=== PATIENT | female | born 1960 | race Caucasian/White ===

== ENCOUNTER → 2019-08-17 | Outpatient (CLI) | payer OTHER ==
[2015-08-26 20:30] VITALS: BP 123/71
[~2019-08-17] MED LIST: ASPI-482 PO; ASPI81TA50 PO; CETI10TA16 PO; DICY10CA3 PO; ESTR0.5T PO; MELO15TA23 PO; MONT10TA80 PO; RABE20TA18 PO
--- NOTE | 2019-08-17 11:08 | RAD ---
Examination: CT sinuses without contrast HISTORY: History of patient headache, dizziness, nausea COMPARISON: None available TECHNIQUE: Axial CT images of the sinuses are performed without contrast. Coronal and sagittal reformats are performed. Exposure: One or more of the following individualized dose reduction techniques were utilized for this examination: 1. Automated exposure control 2. Adjustment of the mA and/or kV according to patient size 3. Use of iterative reconstruction technique FINDINGS: The visualized intracranial portion grossly appears unremarkable. The bilateral orbital globes appear intact. Retro-orbital fat is maintained.The bilateral frontal sinuses, bilateral maxillary sinuses, mastoid aircells are clear. IMPRESSION: The paranasal sinuses, mastoid air cells are clear. Electronically signed by: Darien Raphael MD (08/17/2019 11:05 AM) [id number]
== END | disposition home or self-care (01) ==
LOC: CT 08:41
PROVIDERS: ATTEND Family Medicine
DX: R51 Headache (principal); R42 Dizziness and giddiness; R11.0 Nausea; J45.909 Unspecified asthma, uncomplicated; E11.9 Type 2 diabetes mellitus without complications
CPT/HCPCS: 70486

== ENCOUNTER 2020-08-25 13:17 | Emergency (ER) | payer OTHER ==
[~2020-08-25] VITALS: Ht 170.2 cm; Wt 90.1 kg
[2020-08-25] MEDS ORDERED: diphenhydrAMINE HCL 25 MG CAPSULE PO ONE (13:30)
[2020-08-25] MEDS ORDERED: KETOROLAC 60 MG/2 ML VIAL. IM ONE (13:30)
[2020-08-25] MEDS ORDERED: DEXAMETHASONE SOD PHOS 10 MG/ML VIAL. IM ONE (13:30)
[2020-08-25] MEDS ORDERED: METOCLOPRAMIDE HCL 10 MG/2 ML VIAL. IM ONE (13:30)
--- NOTE | 2020-08-25 13:36 | PHYS DOC ---
Past History Past Medical History: Asthma, Cancer, IBS, Migraines Past Surgical History: , Hysterectomy, Other Smoking: Non-smoker Alcohol Use: None Drug Use: None General Adult EDM: Chief Complaint: HEADACHE HPI: HPI: Patient is a 60-year-old female coming in for migraine headache for almost a week. Patient states she is a history of migraines and usually takes Zomig but does not really get relief for this headache. Patient states the pain is mostly occipital and throbbing. Some photophobia. Denies any vision changes, sudden onset headache, tinnitus, loss of hearing. No weakness or paresthesias. Patient denies any recent trauma or falls. Denies any neck stiffness or fevers. States she has otherwise been well. Review of Systems: Review of Systems: All other systems within normal limits except for as noted in the HPI Allergies: Allergies: Allergies Coded Allergies Type Severity Reaction Last Updated Verified No Known Drug Allergies 08/25/20 No Physical Exam: PE: Constitutional: Well developed, well nourished, no acute distress, non-toxic a ppearance. [] HENT: Normocephalic, atraumatic, bilateral external ears normal, nose normal. [] Eyes: PERRLA, conjunctiva normal, no discharge. [] Neck: No rigidity, supple, no stridor. [] Cardiovascular: Regular rate and rhythm, brisk cap refill [] Lungs & Thorax: Non labored symmetric respirations, no tachypnea or respiratory distress [] Abdomen: Soft, nondistended. Skin: Warm, dry, no erythema, no rash. [] Back: Unremarkable Extremities: No deformities, range of motion grossly intact, no lower extremity edema [] Neurologic: Alert and oriented X 3, no focal deficits noted. Ambulates with steady gait. [] Psychologic: Affect normal, judgement normal, mood normal. [] EKG: EKG: [] Radiology/Procedures: Radiology/Procedures: [] Heart Score: Risk Factors: Risk Factors: DM, Current or recent (<one month) smoker, HTN, HLP, family history of CAD, obesity. Risk Scores: Score 0 - 3: 2.5% MACE over next 6 weeks - Discharge Home Score 4 - 6: 20.3% MACE over next 6 weeks - Admit for Clinical Observation Score 7 - 10: 72.7% MACE over next 6 weeks - Early Invasive Strategies Course & Med Decision Making: Course & Med Decision Making Patient with history of migraines and is in her previous migraines. Discussed the options of work-up and IV medications or IM medications and discharge home with to sleep at home to try to break headache. Discussed risks and benefits of each. Patient opted for IM medications and discharge with instructions to return to emergency department headache does not break at home. Dragon Disclaimer: Dragon Disclaimer: This electronic medical record was generated, in whole or in part, using a voice recognition dictation system. Departure Departure: Impression: Primary Impression: Migraine Disposition: 01 DC HOME SELF CARE/HOMELESS Condition: STABLE Referrals: SYLVIA SANDERS (PCP) Patient Instructions: Miglustat capsules SARAH MCCRAY MD Aug 25, 2020 13:36
[2020-08-25 13:50] VITALS: BP 136/73
== END 2020-08-25 13:53 | disposition home or self-care (01) ==
LOC: ER 13:17
DX: G43.909 Migraine, unspecified, not intractable, without status migrainosus (principal); J45.909 Unspecified asthma, uncomplicated; K58.9 Irritable bowel syndrome, unspecified
CPT/HCPCS: 96372; 99284; J1885; J2765

== ENCOUNTER 2020-09-04 17:23 | Emergency (ER) | payer OTHER ==
[~2020-09-04] VITALS: Ht 170.2 cm; Wt 87.7 kg
--- NOTE | 2020-09-04 17:28 | PHYS DOC ---
Past History Past Medical History: Asthma, Cancer, IBS, Migraines (FADIA HYLTON APRN) Past Surgical History: , Hysterectomy, Other Additional Past Surgical Histo: BLADDER (FADIA HYLTON APRN) Smoking: Non-smoker Alcohol Use: Rarely Drug Use: None (FADIA HYLTON APRN) Adult General HPI HPI Patient is a 60-year-old female presents to the emergency department complaining of sudden onset of epigastric pain just 25 minutes prior to arrival. Patient states she was sitting sorting out old [employer] cards when the pain hit her all of a sudden. Patient states she got up and took both Tums and Gas-X without relief of pain. Patient states that she alerted her to bring her to the emergency department. Patient rated her pain a 10/10 on a 1-10 pain scale, however when the patient arrived to the emergency department she states her pain had dropped down to a 4/10 on a 1-10 pain scale. Patient denies any radiation of this pain. Patient states it hurts worse when she presses on her upper stomach area. Patient denies any diaphoretic episodes. Patient denies any chest palpitations. Patient denies chest pains. Patient denies nausea, vomiti ng, or diarrhea. Patient denies recent fever or chills, denies loss of smell or loss of taste. Patient denies headaches. Denies fatigue, muscle or body aches, patient denies any COVID-19 virus symptoms and does not wish to be checked for the COVID-19 virus today. (FADIA HYLTON APRN) Review of Systems Review of Systems 14 body systems of review of systems have been reviewed. See HPI for pertinent positives and negative responses, otherwise all other systems are negative, nonpertinent or noncontributory. (FADIA HYLTON NATURAL GAS SHOTHOLE DRILLER) Allergies Allergies Allergies Coded Allergies Type Severity Reaction Last Updated Verified No Known Drug Allergies 08/25/20 No (FADIA HYLTON APRN) Physical Exam Physical Exam Constitutional: Well developed, well nourished, no acute distress, non-toxic appearance. HENT: Normocephalic, atraumatic, bilateral external ears normal, oropharynx moist, no oral exudates, nose normal. Eyes: PERRLA, EOMI, conjunctiva normal, no discharge. Neck: Normal range of motion, no tenderness, supple, no stridor. Cardiovascular:Heart rate regular rhythm, no murmur, heart sounds S1-S2 to auscultation. Lungs & Thorax: Bilateral breath sounds clear to auscultation all lung richards. Reproducible pain to epigastric area just inferior to xiphoid process. Abdomen: Bowel sounds normal, soft, no tenderness, no masses, no pulsatile masses. Skin: Warm, dry, no erythema, no rash. Back: No tenderness, no CVA tenderness. Extremities: No tenderness, no cyanosis, no clubbing, ROM intact, no edema. Neurologic: Alert and oriented X 3, normal motor function, normal sensory functi on, no focal deficits noted. Psychologic: Affect normal, judgement normal, mood normal. (FADIA HYLTON APRN) EKG EKG EKG performed at 1735 by house respiratory therapy staff, shows a heart rate of 68 bpm normal sinus rhythm without ectopy, MD interval 0.156, QTc interval 0.406, no acute STEMI, ACS, or acute ischemia appreciated, EKG interpreted by ED attending physician Dr. Gipson. Serial EKG performed at 2053 per house respiratory therapy staff, shows a heart rate of 58 bpm, sinus bradycardia without ectopy, MD interval 0.182, QTc interval 0.396, no acute STEMI, ACS, or acute ischemia appreciated, EKG interpreted by ED attending physician Dr. Gipson. (FADIA HYLTON APRN) Radiology/Procedures Radiology/Procedures [] (FADIA HYLTON APRN) Heart Score HEART Score for Chest Pain: HEART Score for Chest Pain Response (Comments) Value History Slighlty/Non-Suspicious 0 ECG Normal 0 Age >45 - < 65 1 Risk Factors 1 or 2 Risk Factors 1 Troponin < Normal Limit 0 Total 2 Risk Factors: Risk Factors: DM, Current or recent (<one month) smoker, HTN, HLP, family history of CAD, obesity. Risk Scores: Risk Factors: DM, Current or recent (<one month) smoker, HTN, HLP, family history of CAD, obesity. (FADIA HYLTON APRN) Course & Med Decision Making Course & Med Decision Making Pertinent Labs and Imaging studies reviewed. (See chart for details) 60-year-old female, vital signs reviewed, presents emergency department with epigastric pain just inferior to the xiphoid process. Physical examination concerning for possible cardiac versus abdominal versus pulmonary process. ED work-up: EKG, cardiac enzymes, CBC, CMP, lipase, chest x-ray Chest x-ray read normal without acute process per radiology interpretation, EKG unremarkable, initial cardiac enzymes to include troponin I unremarkable. Patient's pain is now a 2/10. Will give IV fentanyl and Toradol for pain. Plan discussed with patient to repeat EKG and cardiac enzymes in 3 hours. Patient amenable to this plan. Serial EKG and cardiac enzymes were negative, patient's lipase was not elevated, patient's chest x-ray was nonconcerning, patient's pulmonary assessment was nonconcerning. Reexamination of the patient found patient's pain a 2/10 on a 1- 10 pain scale when her epigastric area is palpated. Patient states that she feels as if it is in the muscle wall, this is most likely chest wall pain. Discussed findings with patient, patient states that she will follow up with her doctor tomorrow if pain persists, patient gave verbal understanding of discharge home instructions, strict return to ER concerns, follow-up with primary care, patient discharged home without incident. (FADIA HYLTON APRN) Dragon Disclaimer Dragon Disclaimer This electronic medical record was generated, in whole or in part, using a voice recognition dictation system. (FADIA HYLTON APRN) Departure Departure: Impression: Primary Impression: Chest wall pain Disposition: 01 DC HOME SELF CARE/HOMELESS Condition: GOOD Referrals: GERDA GARRISON APRN (PCP) Additional Instructions: Please follow-up with your primary care doctor for ongoing pain, please return immediately to the emergency department for increasing or worsening pain, symptoms, or other concerns. We did an extensive work-up of your heart, lungs, and abdomen, there were no acute or concerning findings, however as this is most likely muscular chest wall pain, it is imperative that you follow-up with your primary care doctor for further assessment if this pain continues. EMERGENCY DEPARTMENT GENERAL DISCHARGE INSTRUCTIONS Thank you for coming to [facility] (ED) today and trusting us with you care. We trust that you had a positivie experience in our Emergency Department. If you wish to speak to the department management, you may call the director at [phone]. YOUR FOLLOW UP INSTRUCTIONS ARE FOLLOWS: 1. Do you have a private Doctor? If you do not have a private doctor, please ask for a resource list of physicians or clinics that may be able to assist you with follow up care. 2. The Emergency Physician has interpreted your x-rays. The X-Ray specialist will also review them. If there is a change in the findings, you will be notified in 48 hours when at all possible. 3. A lab test or culture has been done, your results will be reviewed and you will be notified if you need a change in treatment. ADDITIONAL INSTRUCTIONS AND INFORMATION: 1. Your care today has been supervised by a physician who is specially trained in emergency care. Many problems require more than one evaluation for a complete diagnosis and treatment. We recommend that you schedule your follow up appointment as recommended to ensure complete treatment of you illness or injury. If you are unable to obtain follow up care and continue to have a problem, or if your condition worsens, we recommend that you return to the ED. 2. We are not able to safely determine your condition over the phone nor are we able to give sound medical advice over the phone. For these safety reasons, if you call for medical advice we will ask you to come to the ED for further evaluation. 3. If you have any questions regarding these discharge instructions please call the ED at [phone]. SAFETY INFORMATION: In the interest of safety, wellness, and injury prevention; we encourage you to wear your sealbelt, if you smoke; quite smoking, and we encourage family to use a protective helmet for bicycling and other sporting events that present an increased risk for head injury. IF YOUR SYMPTOMS WORSEN OR NEW SYMPTOMS DEVELOP, OR YOU HAVE CONCERNS ABOUT YOUR CONDITION; OR IF YOUR CONDITION WORSENS WHILE YOU ARE WAITING FOR YOUR FOLLOW UP APPOINTMENT; EITHER CONTACT YOUR PRIMARY CARE DOCTOR, THE PHYSICIAN WHOSE NAME AND NUMBER YOU WERE GIVEN, OR RETURN TO THE ED IMMEDIATELY. Attending Signature Attending Signature I have participated in the care of this patient and I have reviewed and agree with all pertinent clinical information above including history, exam, and recommendations. (JAVI GIPSON MD) FADIA HYLTON APRN Sep 04, 2020 17:28 JAVI GIPSON MD Sep 05, 2020 13:49
[2020-09-04] MEDS ORDERED: LIDO:MAALOX 1:1 20 ML SINGLE DOSE. PO ONE (18:00)
--- NOTE | 2020-09-04 18:06 | RAD ---
INDICATION: Reason: CHEST PAIN / Spl. Instructions: / History: COMPARISON: October 2014 FINDINGS: 2 view of chest obtained. Degenerative changes of the spine. Calcific atherosclerosis. Calcified nodules which could be sequela of old granulomatous disease. No definite focal airspace consolidation. IMPRESSION: * No focal airspace consolidation or edema. Electronically signed by: Ricky Rodgers MD (09/04/2020 6:04 PM) [id number]
[2020-09-04 18:27] LABS: BASO % 0 % (0-3); EOS % 0 % (0-3); HEMATOCRIT 39.3 % (36.0-47.0); HEMOGLOBIN 12.9 g/dL (12.0-15.5); LYMPH # 1.9 x10^3/uL (1.0-4.8); LYMPH % 17 % (24-48); MEAN CORPUSCULAR HEMOGLOBIN 31 pg (25-35); MEAN CORPUSCULAR HGB CONC 33 g/dL (31-37); MEAN CORPUSCULAR VOLUME 94 fL (79-100); MONO # 0.8 x10^3/uL (0.0-1.1); MONO % 7 % (0-9); NEUT # 8.2 x10^3uL (1.8-7.7); NEUT % 75 % (31-73); PLATELET COUNT 229 x10^3/uL (140-400); RED CELL DISTRIBUTION WIDTH 15.7 % (11.5-14.5); WHITE BLOOD COUNT 10.9 x10^3/uL (4.0-11.0)
[2020-09-04 18:34] LABS: CALCIUM 9.2 mg/dL (8.5-10.1); CREATININE 1.1 mg/dL (0.6-1.0); GFR 50.8; POTASSIUM 4.4 mmol/L (3.5-5.1)
[2020-09-04 18:49] LABS: ALBUMIN 3.8 g/dL (3.4-5.0); ALBUMIN/GLOBULIN RATIO 1.2 (1.0-1.7); MAGNESIUM 2.2 mg/dL (1.8-2.4); TOTAL BILIRUBIN 0.1 mg/dL (0.2-1.0)
--- NOTE | 2020-09-04 18:55 | EKG ---
[address] [address] Test Date: 2020-09-04 Test Time: 17:35:48 Pat Name: NAYELI JENNINGS Department: Room: Gender: F Billposter: [place] : 1960 Requested By: FADIA HYLTON Order Number: [id number] Reading MD: Master Rowe Measurements Intervals [place] Rate: 68 P: 40 FL: 156 QRS: 29 QRSD: 72 T: 46 QT: 382 QTc: 406 Interpretive Statements SINUS RHYTHM NORMAL ECG Electronically Signed On 09-09-2020 9:57:14 DRIVER'S LICENSE EXAMINER by Master Rowe
[2020-09-04] MEDS ORDERED: KETOROLAC 15 MG/ML VIAL. IVP ONE (20:15)
--- NOTE | 2020-09-04 21:13 | EKG ---
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
[2020-09-04 21:55] VITALS: BP 152/64
== END 2020-09-04 22:00 | disposition home or self-care (01) ==
LOC: ER 17:23
DX: R07.89 Other chest pain (principal); R10.13 Epigastric pain; J45.909 Unspecified asthma, uncomplicated; K58.9 Irritable bowel syndrome, unspecified; G43.909 Migraine, unspecified, not intractable, without status migrainosus; Z90.710 Acquired absence of both cervix and uterus; Z98.890 Other specified postprocedural states
CPT/HCPCS: 36415; 71046; 80053; 82553; 83690; 83735; 84484; 85025; 85379; 93005; 96374; 96375; 99285; J1885; J3010

== ENCOUNTER → 2021-01-06 | Outpatient (CLI) | payer OTHER ==
--- NOTE | 2021-01-12 12:43 | RAD ---
NM INJECTION History:Reason: epigastric pain / Comparison: None. Technique: 5.5 mCi technetium 99m Choletec was administered intravenously. The patient was scanned f or approximately 5 seconds with the patient became claustrophobic and refused to continue the examina tion. Findings: No images were obtained. Impression: 1. Patient was unable to complete the examination. No images were obtained. Electronically signed by: Shashank To DO (01/12/2021 12:40 PM) [id number]
== END ==
LOC: NM 08:27
PROVIDERS: ATTEND Internal Medicine Gastroenterology
DX: R10.13 Epigastric pain (principal)
CPT/HCPCS: A9537

== ENCOUNTER → 2021-03-03 | Day surgery (SDC) | payer OTHER ==
[~2021-03-03] MED LIST changes: +CETI10TA74 PO; +GLUCOSAMINE; +IPRATRPIUM/ALBUTEROL 0.5/2.5MG 3 ML NEBU. NEB PRN; +IV RINGERS SOLUTION,LACTATED 1,000 ML IV SCH; +LIDOCAINE 2% PF 5 ML VIAL. ONE; +MIDAZOLAM HCL PF 2 MG/2 ML VIAL. IV ONE; +ONDANSETRON PF 4 MG/2 ML VIAL. IV PRN; +OXYB10TA7 PO; +PANT40TA6 PO; +PROPOFOL 10,000 MCG/ML (20ML) VIAL IV ONE; +flovent INH; +probiotic; +vitamin d3
[2021-03-03 08:42] VITALS: BP 134/69
--- NOTE | 2021-03-04 17:23 | PATHOLOGY ---
[facility] Accession Number: [id number] . 01 Material submitted: . PART A: small bowel - SMALL BOWEL R/O CELIAC SPRUE PART B: gastrointestinal site - GASTRIC ANTRUM FOR H. PYLORI . 01 Clinical history: . GERD/PAIN EGD . 02 Diagnosis: A. Small bowel biopsies: - No significant pathologic abnormalities. . B. Gastric biopsy, antrum: - Chronic gastritis, mild. (JPM:sabas; 03/04/2021) S 03/04/2021 1438 Local . 02 Comment: Sections of the small bowel biopsy reveal segments of duodenal and small intestine mucosa. Where best oriented, the mucosal villi show no sprue-like changes or significant inflammatory changes. . Sections of the gastric biopsy reveal gastric antral/body transition mucosa showing congestion and mild chronic inflammation. A properly controlled immunoperoxidase stain for Helicobacter is negative for Helicobacter organisms. (JPM:sabas; 03/04/2021) . Special stain performed: Immunoperoxidase stain for Helicobacter on B1 . . 02 Electronically signed: . Nicolás Moya MD, Pathologist NPI- [id number] . 01 Gross description: . A. The specimen is received in formalin, labeled "Stockwell, Shamika L and small bowel R/O celiac". It consists of multiple miller irregular soft tissue fragments measuring 0.8 x 0.7 x 0.2 cm in aggregate. The specimen is entirely submitted between sponges in A1. . B. The specimen is received in formalin, labeled "Stockwell, Shamika L and gastric BX for H. pylori" and per the requisition "gastric antrum for H. pylori". It consists of a miller irregular soft tissue fragment measuring 0.7 x 0.2 x 0.1 cm. The specimen is entirely submitted between sponges in B1. (MRF; 03/03/2021) MFE/MFE 03/04/2021 1435 Local . 02 Pathologist provided ICD-10: K29.50, K21.9 . 02 CPT . 041892, 869479, [id number] Specimen Comment: A courtesy copy of this report has been sent to [phone] Specimen Comment: 1050, Specimen Comment: Report sent to , DR GARRISON / DR SANDERS Performed at: 01 [facility] [address], [place] [id number] MD Fitz Phelps MD Phone: [phone] Performed at: 02 [facility] [address] [place], [place] [id number] MD Nicolás Moya MD Phone: [phone]
== END ==
LOC: SURG 06:14
PROVIDERS: ATTEND Internal Medicine Gastroenterology
DX: K21.9 Gastro-esophageal reflux disease without esophagitis (principal); K29.50 Unspecified chronic gastritis without bleeding; K44.9 Diaphragmatic hernia without obstruction or gangrene; G43.909 Migraine, unspecified, not intractable, without status migrainosus; G47.33 Obstructive sleep apnea (adult) (pediatric); Z79.899 Other long term (current) drug therapy; Z90.710 Acquired absence of both cervix and uterus; Z98.890 Other specified postprocedural states
CPT/HCPCS: 43239; J2001; J2704; J7120; 88305; 88342

== ENCOUNTER 2021-04-20 15:25 | Emergency (ER) | payer OTHER ==
[~2021-04-20] VITALS: Ht 170.2 cm; Wt 97.6 kg
[~2021-04-20 15:25] MED LIST changes: -IPRATRPIUM/ALBUTEROL 0.5/2.5MG 3 ML NEBU. NEB PRN; -IV RINGERS SOLUTION,LACTATED 1,000 ML IV SCH; -LIDOCAINE 2% PF 5 ML VIAL. ONE; -MIDAZOLAM HCL PF 2 MG/2 ML VIAL. IV ONE; -ONDANSETRON PF 4 MG/2 ML VIAL. IV PRN; -PROPOFOL 10,000 MCG/ML (20ML) VIAL IV ONE
--- NOTE | 2021-04-20 15:43 | PHYS DOC ---
Past History Past Medical History: Asthma, GERD (GENARO OSBORN DO) Past Surgical History: No Surgical History Additional Past Surgical Histo: BLADDER (GENARO OSBORN DO) Smoking: Non-smoker Alcohol Use: Rarely Drug Use: None (GENARO OSBORN DO) Adult General HPI HPI Patient is a 60-year-old female presenting for left neck abnormality. Onset was 30 minutes prior to arrival without any known trauma, ingestion, exposure, inoculation or known mechanism of injury. Nothing known makes better or worse. Patient denies any pain just reports coughing and the left side of her neck feeling tight. States she has been at [facility], woke up and went to primary care physician for evaluation of another nonconcerning complaint and did not even realize any left neck swelling or known abnormalities throughout the day. (GENARO OSBORN DO) Review of Systems Review of Systems Fourteen body systems of review of systems have been reviewed. See HPI for pertinent positives and negative responses, other owusu all other systems are negative, non-pertinent or non-contributory (GENARO OSBORN DO) Allergies Allergies Allergies Coded Allergies Type Severity Reaction Last Updated Verified No Known Drug Allergies 03/03/21 No (GENARO OSBORN DO) Physical Exam Physical Exam Constitutional: Well developed, well nourished, no acute distress, non-toxic appearance. HENT: Normocephalic, atraumatic, bilateral external ears normal, oropharynx moist, no oral exudates, nose normal. Eyes: PERRLA, EOMI, conjunctiva normal, no discharge. Neck: Normal range of motion, no tenderness, supple, no stridor. There is extensive soft tissue swelling and edema present to left neck overlying clavicle without any crepitus or other abnormality Cardiovascular: Heart rate regular, sinus rhythm, no murmurs rubs or gallops Lungs & Thorax: Bilateral breath sounds clear to auscultation Abdomen: Bowel sounds normal, soft, no tenderness, no masses, no pulsatile masses. Nonsurgical abdomen, no peritoneal signs Skin: Warm, dry, no erythema, no rash. Back: No tenderness, no CVA tenderness. Extremities: No tenderness, no cyanosis, no clubbing, ROM intact, no edema. Neurologic: Alert and oriented X 3, grossly normal motor & sensory function, no focal deficits noted. Psychologic: Affect normal, judgement normal, mood normal. (GENARO OSBORN DO) Physical Exam Constitutional: Well developed, well nourished, no acute distress, non-toxic appearance HENT: Normocephalic, atraumatic, tongue normal, handling oral secretions without difficulty Eyes: Conjunctiva normal, no discharge Neck: Decreased range of motion given tenderness with rotation and flexion, left lateral soft tissue swelling at base of neck which is mildly tender to palpation, edema does extend medially to right side, nonpulsatile, no stridor Lungs & Thorax: No respiratory distress, equal chest rise and fall Abdomen: Soft, no tenderness Skin: Warm, dry, mild erythema to anterior neck Extremities: No tenderness, ROM intact, no edema Neurologic: Alert and oriented X 3, no focal deficits noted Psychologic: Affect normal, judgment normal (FADIA JANE DO) Current Patient Data Vital Signs Vital Signs Date Time Temp Pulse Resp B/P (MAP) Pulse Ox O2 Delivery O2 Flow Rate FiO2 04/20/21 15:25 97.8 77 18 134/69 (90) 96 Room Air 04/20/21 21:35 13.0 Vital Signs Date Time Temp Pulse Resp B/P (MAP) Pulse Ox O2 Delivery O2 Flow Rate FiO2 04/21/21 16:47 98.1 87 16 140/71 (94) 95 04/21/21 08:20 94.0 04/21/21 03:20 Room Air Lab Results Laboratory Tests Test 04/20/21 16:05 White Blood Count 8.6 x10^3/uL Red Blood Count 4.26 x10^6/uL Hemoglobin 12.7 g/dL Hematocrit 39.3 % Mean Corpuscular Volume 92 fL Mean Corpuscular Hemoglobin 30 pg Mean Corpuscular Hemoglobin Concent 32 g/dL Red Cell Distribution Width 15.0 % Platelet Count 199 x10^3/uL Neutrophils (%) (Auto) 64 % Lymphocytes (%) (Auto) 22 % Monocytes (%) (Auto) 8 % Eosinophils (%) (Auto) 5 % Basophils (%) (Auto) 1 % Neutrophils # (Auto) 5.5 x10^3uL Lymphocytes # (Auto) 1.9 x10^3/uL Monocytes # (Auto) 0.7 x10^3/uL Eosinophils # (Auto) 0.4 x10^3/uL Basophils # (Auto) 0.1 x10^3/uL Sodium Level 138 mmol/L Potassium Level 4.4 mmol/L Chloride Level 103 mmol/L Carbon Dioxide Level 23 mmol/L Anion Gap 12 Blood Urea Nitrogen 13 mg/dL Creatinine 1.0 mg/dL Estimated GFR (Cockcroft-Gault) 56.7 BUN/Creatinine Ratio 13 Glucose Level 106 mg/dL Calcium Level 9.0 mg/dL Total Bilirubin 0.3 mg/dL Aspartate Amino Transf (AST/SGOT) 22 U/L Alanine Aminotransferase (ALT/SGPT) 33 U/L Alkaline Phosphatase 62 U/L Troponin I Quantitative < 0.017 ng/mL Total Protein 6.1 g/dL Albumin 3.5 g/dL Albumin/Globulin Ratio 1.3 Current Medications Medications (Trade) Dose Ordered Sig/[place] Route PRN Reason Start Time Stop Time Status Last Admin Dose Admin Iohexol (Omnipaque 300 Mg/ml) 75 ml 1X ONCE IV 04/20/21 17:00 04/20/21 17:06 DC Vancomycin HCl 2 gm/Sodium Chloride 500 ml @ 250 mls/hr 1X ONCE IV 04/20/21 17:15 04/20/21 19:14 Piperacillin Sod/ Tazobactam Sod 3.375 gm/Sodium Chloride 50 ml @ 100 mls/hr 1X ONCE IV 04/20/21 17:15 04/20/21 17:44 Methylprednisolone Sodium Succinate (SOLU-Medrol 125MG VIAL) 125 mg 1X ONCE IV 04/20/21 17:30 04/20/21 17:31 DC (GENARO OSBORN DO) EKG EKG EKG ordered and interpreted by myself at 1606 hrs. as sinus rhythm at 77 bpm, unremarkable intervals, no axis deviation, no acute ischemic findings, no STEMI (GENARO OSBORN DO) EKG @1033 NSR at 89bpm, NO ST elevation, QRS 70ms, QT/QTc 350/427ms (FADIA JANE DO) Radiology/Procedures Radiology/Procedures CT NECK CHEST W/CONT 04/20/2021 3:50 PM Indication: Left neck swelling COMPARISON: None available. TECHNIQUE: Multiple axial CT images of the neck and chest were obtained after intravenous demonstration of nonionic contrast. Coronal and sagittal reformats are provided. FINDINGS: Extensive inflammation identified centered within the left supraclavicular space with involvement of the anterior left chest wall superficial to the left pectoralis muscle and left clavicle. Inflammation extends along the anterior margins of the scalene musculature and medially to involve no retropharyngeal space inflammatory changes extending into the mediastinum along the left common carotid artery to involve the AP window as well as along the esophagus with fluid noted along the lateral margins of the esophagus distally. No significant wall thickening involving the aorta, common carotid or internal carotid arteries. The left internal jugular vein is widely patent. Subclavian vein is widely patent. No thrombophlebitis. There is inflammation identified along the left strap muscles. Thyroid gland is normal in appearance with more diminutive caliber of the left thyroid lobe. Numerous nonenlarged bilateral cervical lymph nodes are identified measuring up to 8 mm in the left supraclavicular space. There is no significant joint effusion identified. Sternoclavicular joints are normal in appearance. Cervical and thoracic spine are normal in appearance. No suspicious abnormality identified involving the visualized portions of the brain parenchyma and posterior fossa. The skull base is normal. The visualized paranasal sinuses are well aerated. Orbital contents appear normal. The sella turcica and cavernous sinus regions appear intact. The mastoid air cells are well aerated. The fossa of Rosenmuller is normal. Nasopharynx is normal in appearance. The parotid space contents and conference center manager space contents appear intact. The parapharyngeal spaces are normal. The submandibular contents appear intact. Oral cavity, floor of mouth and sublingual space appear normal.. Oropharynx is normal in appearance. The epiglottis, aryepiglottic folds, and piriform sinuses are normal. The vallecula appears normal. The larynx and trachea are normal. The thyroid gland is normal in appearance. Mild reticular interstitial changes are identified throughout the lungs without focal airspace consolidation. No significant pleural effusions, pulmonary vascular congestion or pneumothorax. There is a 5 mm solid noncalcified pulmonary nodule in the right middle lobe (series 2, image 119). Heart size within normal limits. Thoracic aorta is normal in course and caliber. No pathologically enlarged thoracic lymph nodes. No pericardial effusion. Internal mammary chain is normal. No significant soft tissue mass within the breasts. Upper abdomen is normal in appearance. SVC is patent. No significant osseous abnormality. IMPRESSION: Extensive inflammatory changes are identified at the left neck base centered within the left supraclavicular space with shotty lymphadenopathy. Primary consideration would include lymphadenitis. Inflammatory changes do extend into the mediastinum and early mediastinitis remains a differential consideration. There is ill-definition and inflammatory changes along the middle one third and distal one third of the thoracic esophagus. Correlate with any possible esophageal injury. Correlate with any recent trauma or respiratory infection. Injury to the lymphatic duct is a possibility. No mucosal edema involving the larynx or pharynx. There is no thrombophlebitis or inflammation centered around the arteries. Effusion noted within the retropharyngeal space may be bland, although superimposed infection remains a differential consideration. Correlate with any skin changes may be associated with bug bite, cutaneous inflammation or infection. Myositis is a differential consideration given extensive inflammation along the scalene muscles. No no drainable abscess is identified. Airways patent. (GENARO OSBORN DO) Heart Score C/O Chest Pain: No Risk Factors: Risk Factors: DM, Current or recent (<one month) smoker, HTN, HLP, family history of CAD, obesity. Risk Scores: Risk Factors: DM, Current or recent (<one month) smoker, HTN, HLP, family history of CAD, obesity. (GENARO OSBORN DO) C/O Chest Pain: N/A (SARAH MCCRAY MD) Course & Med Decision Making Course & Med Decision Making Airway patent, breathing unlabored, IV access and vitals obtained HPI, physical exam and comprehensive ER work-up concerning for left-sided neck mass with etiology most likely being lymphadenitis. Question infectious versus malignant causes During decision made to start IV Vanco and Zosyn for antibiotic coverage in addition to giving 125 mg Solu-Medrol. I spoke with hospitalist at [facility] who discussed need for hospital transfer with oncologic services/ability for tissue biopsy and further inpatient work-up which is not available at [facility] As such [facility] was contacted and advised that they would not be accepting any transfers at this time due to being at max capacity I spoke with hospitalist at [facility] who accepted patient in transfer pending bed availability due to ongoing COVID-19 pandemic and capacity issues locally At this time in care, my shift was ending and comprehensive signout given to oncoming physician. Please defer to oncoming physician's documentation regarding future care of patient in ER setting (GENARO OSBORN DO) Course & Med Decision Making Accepted patient care at shift change. Receiving antibiotics and steroids. He is on patient and has large mass in the left side of her neck patient states that she feels pushing on her airway but denies any difficulty swallowing clearing secretions. No difficulty breathing or speaking in full sentences unlabored. 1900 reevaluation of patient states that she feels about the same. Still trying to call multiple hospitals in the area to find a facility with cardiothoracic surgery due to the CT findings of possible early mediastinitis and possible need for mediastinal washout. 2300 patient states she feels like the swelling in her neck is crossing more to the front of her neck but is still able to manage secretions easily and speaking full sentences without difficulty. She will continue to call and not able to find any placement for patient. Have called [facility], [facility], [facility], [facility], [facility], [facility], which to hospital systems [facility] [address] and [facility]. No place has an available bed plus cardiothoracic surgery capabilities. Chloe I have asked that patient be given information about a organization called [employer], they were contacted to assist in finding bed placement. 0400 patient continues to state the swelling has not worsened and she feels little bit better. Still has large noticeable swelling in the supraclavicular space and left neck. [place] controlled gave information about facility and over with CT surgery, [facility] was contacted. They will have their hospitalist call back. 0600 Dr. Roman from [facility] in [facility] declined patient that they do not have enough ICU beds. (SARAH MCCRAY MD) Course & Med Decision Making 0600- Sign out received from Dr. Mccray. Labs and CT imaging reviewed. Patient awaiting acceptance for transfer. Patient seen and evaluated by myself. Patient still complains of some "tightness" but reports lateral soft tissue swelling had improved. Patient receiving scheduled steroids and broad spectrum antibiotics. 1430- Patient with new perioral mild erythema. No tongue or airway involvement. 1455- Called with possible accepting facility at [facility]. Discussed case with Dr. Mauricio Castro (ENT). Dr. Castro reports it appears no surgical management required at this time and patient appears to be improving with medical management. Dr. Castro does not accept of transfer given no surgical intervention required at this time. Advised in agreement medical management has been helping but concern that with symptom change of perioral erythema and lack of MRI or library media specialist at our site, that I feel that patient needs to be admitted at facility with surgical capability. transfer center to [facility] hospitalist regarding possible transfer of patient for continued medical management with ENT consultation. Patient has been tolerated PO in department. 1515- hospitalist concerned that patient would require ICU vs step down unit (PCU) for medical management. No ICU/PCU beds available at at this time. Therefore currently declining transfer for admission. 1625- [facility] called regarding need for transfer. 1635- Discussed case with Dr. Luis Crane (hospitalist) who is in agreement with transfer for further evaluation and treatment with ENT and cardiothoracic consultation. Discussed findings and plan with patient and spouse, who acknowledge understanding and agreement. (FADIA JANE DO) Dragon Disclaimer Dragon Disclaimer This electronic medical record was generated, in whole or in part, using a voice recognition dictation system. (GENARO OSBORN DO) Departure Departure: Impression: Primary Impression: Neck swelling Additional Impressions: Lymphadenitis Mediastinitis Myositis Disposition: 02 [facility] ([facility] Rm 677- Dr. Luis Crane (hospitalist) accepting) Admitting Physician: Other (DR STEEL) (GENARO OSBORN DO) Condition: GUARDED Referrals: LISANDRA MANZANARES DO (PCP) Problem Qualifiers Additional Impressions: Myositis Myositis type: unspecified type Myositis location: other site Qualified Codes: M60.9 - Myositis, unspecified GENARO OSBORN DO Apr 20, 2021 15:43 SARAH MCCRAY MD Apr 21, 2021 05:20 FADIA JANE DO Apr 21, 2021 10:50
--- NOTE | 2021-04-20 16:23 | RAD ---
PQRS Compliance Statement: One or more of the following individualized dose reduction techniques were utilized for this examinat ion: 1. Automated exposure control 2. Adjustment of the mA and/or kV according to patient size 3. Use of iterative reconstruction technique CT NECK CHEST W/CONT 04/20/2021 3:50 PM Indication: Left neck swelling COMPARISON: None available. TECHNIQUE: Multiple axial CT images of the neck and chest were obtained after intravenous demonstrati on of nonionic contrast. Coronal and sagittal reformats are provided. FINDINGS: Extensive inflammation identified centered within the left supraclavicular space with involvement of the anterior left chest wall superficial to the left pectoralis muscle and left clavicle. Inflammatio n extends along the anterior margins of the scalene musculature and medially to involve no retrophary ngeal space inflammatory changes extending into the mediastinum along the left common carotid artery to involve the AP window as well as along the esophagus with fluid noted along the lateral margins of the esophagus distally. No significant wall thickening involving the aorta, common carotid or business intern al carotid arteries. The left internal jugular vein is widely patent. Subclavian vein is widely paten t. No thrombophlebitis. There is inflammation identified along the left strap muscles. Thyroid gland is normal in appearance with more diminutive caliber of the left thyroid lobe. Numerous nonenlarged b ilateral cervical lymph nodes are identified measuring up to 8 mm in the left supraclavicular space. There is no significant joint effusion identified. Sternoclavicular joints are normal in appearance. Cervical and thoracic spine are normal in appearance. No suspicious abnormality identified involving the visualized portions of the brain parenchyma and po sterior fossa. The skull base is normal. The visualized paranasal sinuses are well aerated. Orbital c ontents appear normal. The sella turcica and cavernous sinus regions appear intact. The mastoid air c ells are well aerated. The fossa of Rosenmuller is normal. Nasopharynx is normal in appearance. The parotid space contents a nd ware carrier space contents appear intact. The parapharyngeal spaces are normal. The submandibular contents appear intact. Oral cavity, floor of mouth and sublingual space appear normal.. Oropharynx is normal in appearance. The epiglottis, aryepiglottic folds, and piriform sinuses are nor mal. The vallecula appears normal. The larynx and trachea are normal. The thyroid gland is normal in appearance. Mild reticular interstitial changes are identified throughout the lungs without focal airspace consol idation. No significant pleural effusions, pulmonary vascular congestion or pneumothorax. There is a 5 mm solid noncalcified pulmonary nodule in the right middle lobe (series 2, image 119). Heart size w ithin normal limits. Thoracic aorta is normal in course and caliber. No pathologically enlarged thora cic lymph nodes. No pericardial effusion. Internal mammary chain is normal. No significant soft tissu e mass within the breasts. Upper abdomen is normal in appearance. SVC is patent. No significant osseo us abnormality. IMPRESSION: Extensive inflammatory changes are identified at the left neck base centered within the left supracla vicular space with shotty lymphadenopathy. Primary consideration would include lymphadenitis. Inflamm atory changes do extend into the mediastinum and early mediastinitis remains a differential considera tion. There is ill-definition and inflammatory changes along the middle one third and distal one thir d of the thoracic esophagus. Correlate with any possible esophageal injury. Correlate with any recent trauma or respiratory infection. Injury to the lymphatic duct is a possibility. No mucosal edema inv olving the larynx or pharynx. There is no thrombophlebitis or inflammation centered around the arteri es. Effusion noted within the retropharyngeal space may be bland, although superimposed infection rem ains a differential consideration. Correlate with any skin changes may be associated with bug bite, c utaneous inflammation or infection. Myositis is a differential consideration given extensive inflamma tion along the scalene muscles. No no drainable abscess is identified. Airways patent. FOR INTERNAL CODING PURPOSES Critical result: Findings discussed with Dr. Rosario at 04/20/2021 4:20 PM. RESULT CODE: (C) Electronically signed by: Deb Gallo MD (04/20/2021 4:21 PM) [id number]
--- NOTE | 2021-04-20 16:24 | EKG ---
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
[2021-04-20 16:43] LABS: BASO # 0.1 x10^3/uL (0.0-0.2); BASO % 1 % (0-3); EOS # 0.4 x10^3/uL (0.0-0.7); EOS % 5 % (0-3); HEMATOCRIT 39.3 % (36.0-47.0); HEMOGLOBIN 12.7 g/dL (12.0-15.5); LYMPH # 1.9 x10^3/uL (1.0-4.8); LYMPH % 22 % (24-48); MEAN CORPUSCULAR HEMOGLOBIN 30 pg (25-35); MEAN CORPUSCULAR HGB CONC 32 g/dL (31-37); MEAN CORPUSCULAR VOLUME 92 fL (79-100); MONO # 0.7 x10^3/uL (0.0-1.1); MONO % 8 % (0-9); NEUT # 5.5 x10^3uL (1.8-7.7); NEUT % 64 % (31-73); PLATELET COUNT 199 x10^3/uL (140-400); RED BLOOD COUNT 4.26 x10^6/uL (3.50-5.40); WHITE BLOOD COUNT 8.6 x10^3/uL (4.0-11.0)
[2021-04-20 16:48] LABS: GFR 56.7; POTASSIUM 4.4 mmol/L (3.5-5.1)
[2021-04-20 16:54] LABS: ALBUMIN 3.5 g/dL (3.4-5.0); ALBUMIN/GLOBULIN RATIO 1.3 (1.0-1.7); TOTAL BILIRUBIN 0.3 mg/dL (0.2-1.0); TOTAL PROTEIN 6.1 g/dL (6.4-8.2)
[2021-04-20] MEDS ORDERED: IOHEXOL 300 MG/ML 75 ML VIAL. IV ONE (17:00)
[2021-04-20] MEDS ORDERED: PIPERACILLIN/TAZOBACTAM 3.375 GM in IV NORMAL SALINE 50ML 50 ML IV ONE (17:15)
[2021-04-20] MEDS ORDERED: VANCOMYCIN 2 GM in IV NORMAL SALINE 500ML 500 ML IV ONE (17:15)
[2021-04-20] MEDS ORDERED: methylPREDNISolone SOD SUCC PF 125 MG/2 ML VIAL. IV ONE (17:30)
[2021-04-20] MEDS ORDERED: CLINDAMYCIN 600MG PREMIX 50 ML IV ONE (18:15)
[2021-04-20] MEDS ORDERED: BENZONATATE 100 MG CAPSULE. PO ONE (18:15)
[2021-04-20] MEDS ORDERED: IV NORMAL SALINE 50ML 50 ML ONE (18:51)
[2021-04-20] MEDS ORDERED: VANCOMYCIN 1 GM VIAL. ONE (18:52)
[2021-04-20] MEDS ORDERED: PIPERACILLIN/TAZOBACTAM 3.375 GM VIAL IV ONE (18:52)
[2021-04-20] MEDS ORDERED: IV NORMAL SALINE 500ML 500 ML ONE (18:52)
[2021-04-20] MEDS ORDERED: KETOROLAC 30 MG/ML VIAL. IVP ONE (19:30)
[2021-04-21] MEDS ORDERED: VANCOMYCIN PER PHARMACY MC PRN (00:45)
[2021-04-21] MEDS: PIPERACILLIN/TAZOBACTAM 3.375 GM in IV NORMAL SALINE 50ML 50 ML IV SCH ×3 (01:00→12:04)
[2021-04-21] MEDS ORDERED: PIPERACILLIN/TAZOBACTAM 3.375 GM VIAL IV ONE ×3 (01:11→11:53)
[2021-04-21] MEDS ORDERED: IV NORMAL SALINE 50ML 50 ML ONE ×3 (01:11→11:53)
[2021-04-21] MEDS: methylPREDNISolone SOD SUCC PF 125 MG/2 ML VIAL. IV SCH ×2 (03:14→13:14)
[2021-04-21] MEDS: CLINDAMYCIN 600MG PREMIX 50 ML IV SCH ×2 (03:16→13:21)
[2021-04-21] MEDS ORDERED: BENZONATATE 100 MG CAPSULE. PO ONE (04:45)
--- NOTE | 2021-04-21 05:16 | NUR ---
Pharmacy Vancomycin Dosing Note S:Consulted to monitor and dose vancomycin started 04/20/21. O:NAYELI JENNINGS is a 60 year old F with Abscess Cellulitis, . Height: 5 feet, 7 inches Weight: 97.6 kg [place] Body Weight: 61.60 Adjusted Body Weight: 76.00 Dosing Weight: Actual Other Antibiotics: ZOSYN 3.375G Q6HR CLINDAMYCIN LABS: Last BUN: 13 Last Creatinine: 1.0 Creatinine Clearance: 72 Last WBC: 8.6 Last Procalcitonin: Tmax (past 24 hours): 97.8 Microbiology: I/O: Drug Levels: Last level: on at Last dose given 04/20/21 at 1800 Vancomycin Dosing: Loading Dose: 2000 mg x1 Dosing Weight: Actual Target Trough: 10-20 A: Based on: WEIGHT, RENAL FUNCTION, P: 1. INITIATE Vancomycin 1500 mg IV q12h AFTER 2000 MG LOADING DOSE 2. Follow up Trough level on 04/22/21 at 0530 3. Pharmacy will continue to monitor, follow and adjust therapy as needed. STEF VALENTINO [facility], 04/21/21 0585
[2021-04-21] MEDS ORDERED: VANCOMYCIN 1.5 GM in IV NORMAL SALINE 500ML 500 ML IV SCH ×2 (06:00→08:00)
[2021-04-21 06:02] LABS: BASO % 1 % (0-3); EOS % 0 % (0-3); HEMATOCRIT 41.1 % (36.0-47.0); HEMOGLOBIN 13.6 g/dL (12.0-15.5); LYMPH # 0.8 x10^3/uL (1.0-4.8); LYMPH % 9 % (24-48); MEAN CORPUSCULAR HEMOGLOBIN 30 pg (25-35); MEAN CORPUSCULAR HGB CONC 33 g/dL (31-37); MEAN CORPUSCULAR VOLUME 91 fL (79-100); MONO % 1 % (0-9); NEUT # 8.2 x10^3uL (1.8-7.7); NEUT % 90 % (31-73); PLATELET COUNT 221 x10^3/uL (140-400); RED BLOOD COUNT 4.54 x10^6/uL (3.50-5.40); RED CELL DISTRIBUTION WIDTH 15.3 % (11.5-14.5); WHITE BLOOD COUNT 9.1 x10^3/uL (4.0-11.0)
[2021-04-21 06:21] LABS: ALBUMIN 3.5 g/dL (3.4-5.0); CALCIUM 9.3 mg/dL (8.5-10.1); GFR 56.7; POTASSIUM 4.1 mmol/L (3.5-5.1); TOTAL BILIRUBIN 0.3 mg/dL (0.2-1.0); TOTAL PROTEIN 6.9 g/dL (6.4-8.2)
[2021-04-21] MEDS ORDERED: VANCOMYCIN 1 GM in IV NORMAL SALINE 250ML 250 ML IV SCH (09:00)
[2021-04-21] MEDS ORDERED: KETOROLAC 15 MG/ML VIAL. IVP ONE (10:30)
[2021-04-21] MEDS ORDERED: ONDANSETRON PF 4 MG/2 ML VIAL. IVP ONE (12:00)
[2021-04-21] MEDS ORDERED: BENZONATATE 100 MG CAPSULE. PO PRN (12:15)
--- NOTE | 2021-04-21 14:01 | EKG ---
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
[2021-04-21 16:47] VITALS: BP 140/71
== END 2021-04-21 18:08 | disposition short-term general hospital (02) ==
LOC: ER 15:25
DX: R22.1 Localized swelling, mass and lump, neck (principal); I88.9 Nonspecific lymphadenitis, unspecified; J98.51 Mediastinitis; M60.9 Myositis, unspecified; J45.909 Unspecified asthma, uncomplicated; K21.9 Gastro-esophageal reflux disease without esophagitis; Z20.822 Contact with and (suspected) exposure to COVID-19
CPT/HCPCS: 36415; 70491; 71260; 80053; 82550; 84484; 85025; 86140; 87426; 93005; 96365; 96366; 96368; 96375; 96376; 99285; J1885; J2405; J2543; J2930; J3370; J3490; J7040; Q9967; U0003

== ENCOUNTER 2021-11-19 01:13 | Emergency (ER) | payer OTHER ==
[~2021-11-19] VITALS: Ht 170.2 cm; Wt 90.9 kg
[2021-11-19 01:22] VITALS: BP 134/64
--- NOTE | 2021-11-19 01:41 | PHYS DOC ---
Past History Past Medical History: Asthma, GERD Additional Past Medical Histor: uterine cancer Past Surgical History: Cancer Surgery, , Hysterectomy Additional Past Surgical Histo: BLADDER Smoking: Non-smoker Alcohol Use: Rarely Drug Use: None Adult General Chief Complaint Chief Complaint: MECHANICAL FALL HPI HPI Patient is a 61-year-old female that presents to the emergency department with a chief complaint of left knee and lower leg pain as well as left-sided chest wall pain after falling off a scooter in [place] while she was on vacation 4 days ago. States she did not go to the hospital in [place]. States she stated finished her vacation. States she wanted to come home and go to the hospital here. Denies any head injuries, headache, neck pain, chest pain, shortness of breath, abdominal pain, nausea, vomiting. Denies any numbness/weakness/tingling. Denies any trouble sitting, standing or walking. Denies any trouble making urine or stool. States she has a couple of abrasions and is not up-to-date on her tetanus. Review of Systems Review of Systems Review of systems otherwise unremarkable except noted in HPI Allergies Allergies Allergies Coded Allergies Type Severity Reaction Last Updated Verified No Known Drug Allergies 11/19/21 No Physical Exam Physical Exam Constitutional: Well developed, well nourished, no acute distress, non-toxic appearance. [] HENT: Normocephalic, atraumatic, bilateral external ears normal, oropharynx moist, no oral exudates, nose normal. [] Eyes: conjunctiva normal, no discharge. [] Neck: Normal range of motion, no tenderness, supple, no stridor. [] Cardiovascular:Heart rate regular rhythm, no murmur [] Lungs & Thorax: Bilateral breath sounds clear to auscultation [] Abdomen: soft, no tenderness, no masses, no pulsatile masses. [] Skin: Warm, dry, scattered abrasions Back: No tenderness, no CVA tenderness. [] Extremities: No tenderness, no cyanosis, no clubbing, ROM intact, no edema. [] Neurologic: Alert and oriented X 3, normal motor function, normal sensory function, able to sit, stand and walk without issue, no focal deficits noted. [] Psychologic: Affect normal, judgement normal, mood normal. [] Current Patient Data Vital Signs Vital Signs Date Time Temp Pulse Resp B/P (MAP) Pulse Ox O2 Delivery O2 Flow Rate FiO2 11/19/21 01:22 97.9 66 18 134/64 (87) 98 Room Air EKG EKG [] Radiology/Procedures Radiology/Procedures [] Heart Score C/O Chest Pain: No Risk Factors: Risk Factors: DM, Current or recent (<one month) smoker, HTN, HLP, family history of CAD, obesity. Risk Scores: Risk Factors: DM, Current or recent (<one month) smoker, HTN, HLP, family history of CAD, obesity. Course & Med Decision Making Course & Med Decision Making Patient is a 61-year-old female who presents after falling off a scooter 4 days ago in [place] while on vacation Vital signs nonconcerning. Physical exam noted above. Given pain medicine. Updated tetanus. Imaging with no acute osseous abnormalities. Discussed all findings with patient. Discussed symptom management at home Advised to follow-up with primary care physician when she can. Gave return precautions to the ED. [] Dragon Disclaimer Dragon Disclaimer This electronic medical record was generated, in whole or in part, using a voice recognition dictation system. Departure Departure: Impression: Primary Impression: Fall Additional Impressions: Left knee pain Left-sided chest wall pain Disposition: HOME / SELF CARE / HOMELESS Condition: STABLE Referrals: LISANDRA MANZANARES DO (PCP) Patient Instructions: RICE - Routine Care for Injuries Additional Instructions: Fever coming into the emergency department tonight and allowing us to take care of you. Please read the attached information carefully to go over things we discussed. You can continue Tylenol, ibuprofen and ice at home as needed. Please follow-up with your primary care physician as soon as you can update on ED visit. Problem Qualifiers ESAU GARCIA MD Nov 19, 2021 01:41
[2021-11-19] MEDS ORDERED: DIPHTH,PERTUSS(ACELL),TET TOX 0.5 ML DISP.SYRIN. VAX IM ONE (02:00)
[2021-11-19] MEDS ORDERED: IBUPROFEN 600 MG TABLET. PO ONE (02:00)
--- NOTE | 2021-11-19 02:44 | RAD ---
PA chest and 4 oblique left rib x-rays HISTORY: Fall, pain. FINDINGS: Cardiac and mediastinal silhouette are normal. No pneumothorax, pulmonary opacities or pleu ral effusions. No evidence of a left-sided rib fracture. IMPRESSION: No acute process. No evidence of a left-sided rib fracture. Left knee x-rays 3 views HISTORY: Fall, pain. FINDINGS: No fracture. No dislocation. No arthritic change. Soft tissues are normal. IMPRESSION: Normal exam. Left tibia-fibula AP lateral x-rays HISTORY: Fall, pain FINDINGS: There is ankle soft tissue edema and swelling. No fracture or dislocation of the tibia and fibula. IMPRESSION: No acute osseous injury. Electronically signed by: Isaiah Cantu MD (11/19/2021 2:41 AM) [facility]
[2021-11-19] MEDS ORDERED: ACETAMINOPHEN/CODEINE 300/30MG 4TABLET STARTPACK. PO ONE ×2 (03:09→03:15)
[2021-11-19] MEDS ORDERED: oxyCODONE IR 5 MG TABLET PO ONE (04:00)
== END 2021-11-19 03:14 | disposition home or self-care (01) ==
LOC: ER 01:13
DX: S80.812A Abrasion, left lower leg, initial encounter (principal); M25.562 Pain in left knee; R07.89 Other chest pain; J45.909 Unspecified asthma, uncomplicated; K21.9 Gastro-esophageal reflux disease without esophagitis; W05.1XXA Fall from non-moving nonmotorized scooter, initial encounter; Y93.89 Activity, other specified; Y92.89 Other specified places as the place of occurrence of the external cause; Y99.8 Other external cause status
CPT/HCPCS: 71101; 73562; 73590; 90471; 90715; 99284

== ENCOUNTER 2021-12-28 11:13 | Observation (INO) | payer OTHER ==
[~2021-12-28] VITALS: Ht 170.2 cm; Wt 98.6 kg
[2021-12-28] MEDS ORDERED: methylPREDNISolone SOD SUCC PF 125 MG/2 ML VIAL. IV ONE (11:45)
[2021-12-28] MEDS ORDERED: IPRATRPIUM/ALBUTEROL 0.5/2.5MG 3 ML NEBU. NEB ONE (11:45)
[2021-12-28] MEDS ORDERED: IV NORMAL SALINE 1,000ML 1,000 ML IV SCH ×2 (11:45→14:30)
[2021-12-28] MEDS ORDERED: ACETAMINOPHEN 325 MG TABLET PO ONE (11:45)
--- NOTE | 2021-12-28 11:46 | PHYS DOC ---
Past History Past Medical History: Asthma, GERD Additional Past Medical Histor: uterine cancer, IBS, Past Surgical History: Cancer Surgery, , Hysterectomy Additional Past Surgical Histo: BLADDER, L foot, thumb Smoking: Non-smoker Alcohol Use: Rarely Drug Use: None Adult General Chief Complaint Chief Complaint: SHORTNESS OF BREATH HPI HPI Patient is a 61 year old female who presents with complaint of shortness of breath. The patient states that she started having cough and congestion approximately 5 days ago, however she started getting worsening cough, chest tightness, and shortness of breath within the last 2 days. States that she had difficulty sleeping due to her symptoms. She does note history of asthma and tried taking her albuterol inhaler but notes no significant improvement. States that these symptoms worsen with minimal exertion. Denies any chest or abdominal pain currently. Notes headache but attributes this to her frequent coughing. States that the cough has been largely nonproductive. Review of Systems Review of Systems Constitutional: Denies fever or chills [] Eyes: Denies change in visual acuity, redness, or eye pain [] HENT: Nasal congestion, sore throat [] Respiratory: Cough, shortness of breath [] Cardiovascular: Denies chest pain or edema [] GI: Denies abdominal pain, nausea, vomiting, bloody stools or diarrhea [] : Denies dysuria or hematuria [] Musculoskeletal: Denies back pain or joint pain [] Integument: Denies rash or skin lesions [] Neurologic: Headache, denies focal weakness or sensory changes [] All other systems were reviewed and found to be within normal limits, except as documented in this note. Allergies Allergies Allergies Coded Allergies Type Severity Reaction Last Updated Verified pseudoephedrine Allergy Unknown 12/28/21 Yes Physical Exam Physical Exam Constitutional: Alert, afebrile, appears in moderate respiratory distress. [] HENT: Normocephalic, atraumatic, bilateral external ears normal, oropharynx moist, no oral exudates, nose normal. [] Eyes: PERRLA, EOMI, conjunctiva normal, no discharge. [] Neck: Normal range of motion, no tenderness, supple, no stridor. [] Cardiovascular:Heart rate regular rhythm, no murmur [] Lungs & Thorax: Tachypnea, accessory muscle usage present, no wheezes, rales, or rhonchi on auscultation [] Abdomen: Bowel sounds normal, soft, no tenderness, no masses, no pulsatile masses. [] Skin: Warm, dry, no erythema, no rash. [] Back: No tenderness, no CVA tenderness. [] Extremities: No tenderness, no cyanosis, no clubbing, ROM intact, no edema. [] Neurologic: Alert and oriented X 3, normal motor function, normal sensory function, no focal deficits noted. [] Current Patient Data Vital Signs Vital Signs Date Time Temp Pulse Resp B/P (MAP) Pulse Ox O2 Delivery O2 Flow Rate FiO2 12/28/21 11:26 98.9 90 24 140/72 (94) 98 Room Air Lab Results Laboratory Tests Test 12/28/21 11:56 12/28/21 11:58 White Blood Count 9.8 x10^3/uL Red Blood Count 4.31 x10^6/uL Hemoglobin 12.9 g/dL Hematocrit 38.6 % Mean Corpuscular Volume 90 fL Mean Corpuscular Hemoglobin 30 pg Mean Corpuscular Hemoglobin Concent 33 g/dL Red Cell Distribution Width 15.2 % Platelet Count 190 x10^3/uL Neutrophils (%) (Auto) 78 % Lymphocytes (%) (Auto) 14 % Monocytes (%) (Auto) 6 % Eosinophils (%) (Auto) 1 % Basophils (%) (Auto) 0 % Neutrophils # (Auto) 7.6 x10^3uL Lymphocytes # (Auto) 1.4 x10^3/uL Monocytes # (Auto) 0.6 x10^3/uL Eosinophils # (Auto) 0.1 x10^3/uL Basophils # (Auto) 0.0 x10^3/uL D-Dimer (Alexia) 0.39 mg/L Sodium Level 137 mmol/L Potassium Level 3.9 mmol/L Chloride Level 101 mmol/L Carbon Dioxide Level 27 mmol/L Anion Gap 9 Blood Urea Nitrogen 9 mg/dL Creatinine 1.0 mg/dL Estimated GFR (Cockcroft-Gault) 56.6 BUN/Creatinine Ratio 9 Glucose Level 95 mg/dL Calcium Level 9.4 mg/dL Total Bilirubin 0.4 mg/dL Aspartate Amino Transf (AST/SGOT) 22 U/L Alanine Aminotransferase (ALT/SGPT) 38 U/L Alkaline Phosphatase 81 U/L Troponin I High Sensitivity 10 ng/L OJ-Wyx-X-Type Natriuretic Peptide 274 pg/mL Total Protein 6.9 g/dL Albumin 3.7 g/dL Albumin/Globulin Ratio 1.2 Influenza Type A (Rapid) Negative Influenza Type B (Rapid) Negative SARS-CoV-2 Antigen (Rapid) Negative Current Medications Medications (Trade) Dose Ordered Sig/Alton Route PRN Reason Start Time Stop Time Status Last Admin Dose Admin Sodium Chloride 1,000 ml @ 1,000 mls/hr Q1H IV 12/28/21 11:45 12/28/21 12:44 DC 12/28/21 12:16 Methylprednisolone Sodium Succinate (SOLU-Medrol 125MG VIAL) 125 mg 1X ONCE IV 12/28/21 11:45 12/28/21 11:55 DC 12/28/21 12:15 Albuterol/ Ipratropium (Duoneb) 3 ml 1X ONCE NEB 12/28/21 11:45 12/28/21 11:55 DC 12/28/21 12:25 Acetaminophen (Tylenol) 650 mg 1X ONCE PO 12/28/21 11:45 12/28/21 11:55 DC 12/28/21 12:16 EKG EKG Interpreted by me: Heart rate 81, sinus rhythm, normal intervals, no acute ST/T wave abnormalities present [] Radiology/Procedures Radiology/[place] [address] IMAGING REPORT Signed PATIENT: NAYELI JENNINGS ACCOUNT: [id number] : 1960 LOCATION: ER AGE: 61 SEX: F EXAM STATUS: REG ER ORD. PHYSICIAN: OLIVIA HOWE MD REASON: shortness of breath, cough PROCEDURE: PORTABLE CHEST 1V AP chest. HISTORY: Short of breath, cough AP view was taken of the chest. Comparison is made with a study from November 19. Heart is normal in size. There is no pleural effusion. There are no acute infiltrates. IMPRESSION: 1. No acute infiltrates. Electronically signed by: Peterson Flaherty MD (12/28/2021 12:12 PM) [facility] DICTATED AND SIGNED BY: PETERSON FLAHERTY MD DATE: 12/28/21 1211 CC: OLIVIA HOWE MD; LISANDRA MANZANARES DO ~ [] Heart Score C/O Chest Pain: No Risk Factors: Risk Factors: DM, Current or recent (<one month) smoker, HTN, HLP, family history of CAD, obesity. Risk Scores: Risk Factors: DM, Current or recent (<one month) smoker, HTN, HLP, family history of CAD, obesity. Course & Med Decision Making Course & Med Decision Making Pertinent Labs and Imaging studies reviewed. (See chart for details) Patient ministered Solu-Medrol and DuoNeb in the emergency department. Lab work was reviewed. Notable for slight elevation in BNP level otherwise, troponin and D-dimer levels found to be within normal limits. Chest x-ray shows no infiltrate or effusion. Blood work shows no leukocytosis or other significant metabolic abnormality. The patient notes slight improvement in work of breathing but notes that she is still having trouble being able to take a deep b reath and does still display some slight accessory muscle usage. Patient symptoms appear due to likely asthma exacerbation and patient would benefit from admission for further treatment with IV steroids and nebulizer treatments. I spoke with Dr. Jones, hospitalist, who is agreed to accept patient to the hospital for further care. Spoke with patient regarding plan of care and she is in agreement at time of disposition. [] Dragon Disclaimer Dragon Disclaimer This electronic medical record was generated, in whole or in part, using a voice recognition dictation system. Departure Departure: Impression: Primary Impression: Acute asthma exacerbation Additional Impression: Elevated brain natriuretic peptide (BNP) level Disposition: ADMITTED INPATIENT Admitting Physician: Alvarado Jones Condition: GUARDED Referrals: LISANDRA MANZANARES DO (PCP) Problem Qualifiers Primary Impression: Acute asthma exacerbation Asthma severity: unspecified severity Asthma persistence: unspecified Qualified Codes: J45.901 - Unspecified asthma with (acute) exacerbation OLIVIA HOWE MD December 28, 2021 11:46
--- NOTE | 2021-12-28 12:14 | RAD ---
AP chest. HISTORY: Short of breath, cough AP view was taken of the chest. Comparison is made with a study from November 19. Heart is normal in siz e. There is no pleural effusion. There are no acute infiltrates. IMPRESSION: 1. No acute infiltrates. Electronically signed by: Peterson Flaherty MD (12/28/2021 12:12 PM) [facility]
[2021-12-28 12:23] LABS: BASO % 0 % (0-3); EOS # 0.1 x10^3/uL (0.0-0.7); EOS % 1 % (0-3); HEMATOCRIT 38.6 % (36.0-47.0); HEMOGLOBIN 12.9 g/dL (12.0-15.5); LYMPH # 1.4 x10^3/uL (1.0-4.8); LYMPH % 14 % (24-48); MEAN CORPUSCULAR HEMOGLOBIN 30 pg (25-35); MEAN CORPUSCULAR HGB CONC 33 g/dL (31-37); MEAN CORPUSCULAR VOLUME 90 fL (79-100); MONO # 0.6 x10^3/uL (0.0-1.1); MONO % 6 % (0-9); NEUT # 7.6 x10^3uL (1.8-7.7); NEUT % 78 % (31-73); PLATELET COUNT 190 x10^3/uL (140-400); RED BLOOD COUNT 4.31 x10^6/uL (3.50-5.40); RED CELL DISTRIBUTION WIDTH 15.2 % (11.5-14.5); WHITE BLOOD COUNT 9.8 x10^3/uL (4.0-11.0)
[2021-12-28 12:29] LABS: CALCIUM 9.4 mg/dL (8.5-10.1); GFR 56.6; POTASSIUM 3.9 mmol/L (3.5-5.1)
[2021-12-28 12:35] LABS: INFLUENZA A PATIENT NEGATIVE (NEGATIVE); INFLUENZA B PATIENT NEGATIVE (NEGATIVE)
[2021-12-28 12:42] LABS: ALBUMIN 3.7 g/dL (3.4-5.0); ALBUMIN/GLOBULIN RATIO 1.2 (1.0-1.7); TOTAL BILIRUBIN 0.4 mg/dL (0.2-1.0); TOTAL PROTEIN 6.9 g/dL (6.4-8.2)
[2021-12-28] MEDS ORDERED: ONDANSETRON PF 4 MG/2 ML VIAL. IVP PRN (14:30)
[2021-12-28] MEDS ORDERED: ACETAMINOPHEN 325 MG TABLET PO PRN (14:30)
[2021-12-28 15:24] VITALS: BP 135/72
[2021-12-28] MEDS: IPRATRPIUM/ALBUTEROL 0.5/2.5MG 3 ML NEBU. NEB SCH ×2 (16:00→21:01)
[2021-12-28] MEDS: BENZONATATE 100 MG CAPSULE. PO PRN (16:12)
[2021-12-28 19:00] VITALS: BP 165/69
[2021-12-28] MEDS ORDERED: ACETAMINOPHEN/CODEINE 300/30MG TABLET PO PRN (21:15)
[2021-12-28 23:00] VITALS: BP 176/83
[2021-12-29] MEDS: BENZONATATE 100 MG CAPSULE. PO PRN (00:42)
[2021-12-29 05:00] VITALS: BP 161/63
[2021-12-29] MEDS: IPRATRPIUM/ALBUTEROL 0.5/2.5MG 3 ML NEBU. NEB SCH (05:21)
[2021-12-29 06:09] LABS: BASO % 0 % (0-3); EOS % 0 % (0-3); HEMATOCRIT 35.3 % (36.0-47.0); HEMOGLOBIN 11.6 g/dL (12.0-15.5); LYMPH # 2.1 x10^3/uL (1.0-4.8); LYMPH % 13 % (24-48); MEAN CORPUSCULAR HEMOGLOBIN 30 pg (25-35); MEAN CORPUSCULAR HGB CONC 33 g/dL (31-37); MEAN CORPUSCULAR VOLUME 90 fL (79-100); MONO # 0.6 x10^3/uL (0.0-1.1); MONO % 4 % (0-9); NEUT # 13.3 x10^3uL (1.8-7.7); NEUT % 83 % (31-73); PLATELET COUNT 185 x10^3/uL (140-400); RED BLOOD COUNT 3.91 x10^6/uL (3.50-5.40); RED CELL DISTRIBUTION WIDTH 15.2 % (11.5-14.5); WHITE BLOOD COUNT 15.9 x10^3/uL (4.0-11.0)
[2021-12-29 06:18] LABS: CALCIUM 9.1 mg/dL (8.5-10.1); CREATININE 1.1 mg/dL (0.6-1.0); GFR 50.7; POTASSIUM 3.5 mmol/L (3.5-5.1)
--- NOTE | 2021-12-29 08:55 | HP ---
DATE OF SERVICE: 12/29/2021 ADMIT DATE: 12/28/2021 ATTENDING PHYSICIAN: Dr. Jones. CHIEF COMPLAINT: Shortness of breath. HISTORY OF PRESENT ILLNESS: The patient is a 61-year-old female admitted with a 5-day history of dry nonproductive cough. She has had her vaccination and previous exposure to COVID, influenza A and B were negative. Chest x-ray workup in the ED was clear. Clinically, she had an exacerbation of asthma. Her oxygen saturation in the ED yesterday was about 89%. Because of her symptoms and her cough, she was admitted for further treatment and evaluation. PAST MEDICAL HISTORY: Significant for asthma, aggravated by gastroesophageal reflux disease. She has sleep apnea. She has had a history of uterine cancer with resection of uterus 24 years ago. She also has a history of IBS, previous and hysterectomy. SOCIAL HISTORY: She is a nonsmoker, nondrinker. ALLERGIES: SHE HAS ALLERGIES TO PSEUDOEPHEDRINE, EXACT REACTIONS UNCLEAR. CURRENT MEDICATIONS: Include Zyrtec, Singulair, oxybutynin, and Protonix. FAMILY HISTORY: Unobtainable due to the fact she was adopted. She is retired, lives with her , he is a nonsmoker. REVIEW OF SYSTEMS: All other systems reviewed and turned to be negative. PHYSICAL EXAMINATION: GENERAL: When I saw her, this is a pleasant, middle-aged female. INITIAL VITAL SIGNS: Showed a blood pressure of 160/60, pulse is 70 and regular. She was afebrile. Oxygen saturation was 96% on room air when I saw her. HEENT: Head is without trauma. Pupils are reactive. Sclerae nonicteric. Oropharynx clear. NECK: Supple. LUNGS: Good breath sounds. She had some upper airway rhonchi. CARDIOVASCULAR: Regular heart tones. ABDOMEN: Soft. EXTREMITIES: Without edema. NEUROLOGIC: Neurologic function focally intact. Speech is fluent. SKIN: Warm and dry. PERTINENT LABORATORY STUDIES: The hemoglobin is 12.9 grams per deciliter, white count 9800. Electrolytes all within normal range. Creatinine is 1.1 mg percent, nonfasting blood sugar 134. Cardiac enzymes are negative for coronary ischemia. Chest x-ray was entirely clear without any acute infiltrates or decompensation. ASSESSMENT: 1. A 61-year-old female with a viral bronchitis. 2. Exacerbation of asthma. 3. History of gastroesophageal reflux disease. 4. History of uterine cancer in remission. She has had previous hysterectomy. 5. Sleep apnea. PLAN: 1. Observation status. 2. Cortical steroids. 3. Nebulizer therapy. 4. Continue home meds. ELOISE/JORGE/CHERYL DR: ELOISE/cynthia TID: [id number]
--- NOTE | 2021-12-29 09:30 | DS ---
DATE OF DISCHARGE: 12/29/2021 ATTENDING PHYSICIAN: Dr. Jones. FINAL DISCHARGE DIAGNOSES: 1. Acute asthma exacerbation. 2. Viral bronchitis. 3. Sleep apnea. 4. Gastroesophageal reflux disease. 5. History of uterine cancer in 1997. HISTORY AND PHYSICAL: The patient is a 61-year-old female with a 4-day history of increasing shortness of breath, cough, congestion. No fevers. She has already been exposed to COVID and had her vaccination. She was admitted with treatment of her asthma. PHYSICAL EXAMINATION: Please see the dictated note. PERTINENT LABORATORY AND X-RAY STUDIES: Hemoglobin 12.9 grams, white count 9800. Electrolytes within normal range. Serology negative for influenza A, B and coronavirus. Chest x-ray was clear without any acute infiltrates. COURSE IN THE HOSPITAL: She was admitted, started on intravenous Solu-Medrol and nebulizer therapy. We were able to wean her off of oxygen. She had marginal saturations in the Emergency Department. When I saw her, her sats were 96% on room air. She was ready for discharge. I listened to her and she is moving air well. The cough is treated and responds to Tessalon Perles. Therefore, I recommended prednisone 60 mg p.o. daily for 7 days, then stop; albuterol inhaler, she has a spacer at home, 2 puffs q.i.d. and finally Tessalon Perles 100 mg 2 every 8 hours p.r.n. cough. She will continue her Zyrtec, montelukast, oxybutynin, and Protonix dose unchanged. She was discharged then from our hospital in stable condition with explicit drug and followup care. MCKAYLA BELL: ELOISE/cynthia TID: [id number]
[2021-12-29 09:43] LABS: % ATYL 7 % (0-0); % BANDS 9 % (0-9); % LYMPHS 15 % (24-48); % MONOS 2 % (0-10); % SEGS 67 % (35-66)
[2021-12-29 09:46] LABS: OVALOCYTES PRESENT; TARGET CELLS OCC
[2021-12-29 09:47] LABS: SCHISTOCYTES OCC
[2021-12-29 09:48] LABS: MICROCYTOSIS PRESENT
[2021-12-29 09:50] LABS: ANISOCYTOSIS SLIGHT
[2021-12-29 09:53] LABS: PLT ESTIMATE ADEQUATE (ADEQUATE)
== END 2021-12-29 09:15 | disposition home or self-care (01) ==
LOC: ER 11:13 → INTOOBSV 14:22 → ER HOLD 14:22 → 1 SOUTH 15:10 → UNDODISOB 12-29 09:15
PROVIDERS: ADMIT Hospitalist; ATTEND Hospitalist
DX: J20.8 Acute bronchitis due to other specified organisms (principal); Z20.822 Contact with and (suspected) exposure to COVID-19; J45.901 Unspecified asthma with (acute) exacerbation; K21.9 Gastro-esophageal reflux disease without esophagitis; G47.30 Sleep apnea, unspecified; R79.89 Other specified abnormal findings of blood chemistry; Z85.42 Personal history of malignant neoplasm of other parts of uterus; Z90.710 Acquired absence of both cervix and uterus; Z79.899 Other long term (current) drug therapy; Z98.890 Other specified postprocedural states; Z98.891 History of uterine scar from previous surgery
CPT/HCPCS: 36415; 71045; 80048; 80053; 83880; 84484; 85007; 85025; 85379; 87428; 93005; 94640; 96361; 96374; 96375; 99285; J2405; J2930; J7030; U0003; G0378; G0379